=== PATIENT | male | born 1995 | race African-American/Black ===

== ENCOUNTER 2018-05-18 03:02 | Emergency (ER) | payer SELFPAY ==
[~2018-05-18] VITALS: Ht 182.9 cm; Wt 127.2 kg
[2018-05-18 03:25] VITALS: BP 138/84
== END 2018-05-18 07:03 | disposition home or self-care (01) ==
LOC: ER 03:05
DX: L03.012 Cellulitis of left finger (principal); B35.0 Tinea barbae and tinea capitis; F17.210 Nicotine dependence, cigarettes, uncomplicated
CPT/HCPCS: 10060